=== PATIENT | female | born 1985 | race Caucasian/White ===

== ENCOUNTER 2017-10-19 14:05 | Emergency (ER) | payer MEDICAID ==
[~2017-10-19] VITALS: Ht 175.3 cm; Wt 90.7 kg
[2017-10-19] MEDS ORDERED: Norco 5-325 Ta1 EACH PO (15:53)
== END 2017-10-19 16:06 | disposition home or self-care (01) ==
LOC: ER 14:05
DX: M25.552 Pain in left hip (principal); F17.210 Nicotine dependence, cigarettes, uncomplicated; Z88.5 Allergy status to narcotic agent
CPT/HCPCS: 73502; 96372; 99283-25; J1885